=== PATIENT | female | born 1940 | race Caucasian/White ===

== ENCOUNTER 2022-08-01 10:53 | Outpatient (CLI) | payer MEDICARE, BC, SELFPAY | END 2022-08-01 10:54 | disposition home or self-care (01) | LOC: NFLDREF 08-03 11:33 | PROVIDERS: PCP Internal Medicine; Referring Provider Internal Medicine; Visit Provider Internal Medicine | DX: E78.5 Hyperlipidemia, unspecified (principal); I10 Essential (primary) hypertension | CPT/HCPCS: 80048; 80061 ==

== ENCOUNTER 2022-11-07 13:51 | Outpatient (CLI) | payer MEDICARE, BC, SELFPAY | END 2022-11-07 13:52 | disposition home or self-care (01) | LOC: US 13:51 | PROVIDERS: PCP Internal Medicine; Visit Provider Internal Medicine | DX: M79.604 Pain in right leg (principal); M79.605 Pain in left leg; R20.0 Anesthesia of skin | CPT/HCPCS: 93924 ==

== ENCOUNTER 2022-11-29 14:00 | Outpatient (RCR) | payer MEDICARE, BC, SELFPAY ==
--- NOTE | 2022-09-19 17:34 | PT.OPEX ---
PT [place] Outpatient Eval PT [facility] Outpatient Eval Start: 09/19/22 16:59 Freq: Status: Active Protocol: Document 09/19/22 17:02 AMOS (Rec: 09/19/22 17:25 AMOS [id number]) E-signed By Chayo Carmona DPT Physical Therapy Outpatient Evaluation Insurance Information Recert Due Date 12/18/22 Insurance Name Medicare B,Blue Cross/Blue Shield Medical Diagnosis R sciatica M54.31 Treating Diagnosis R sciatica pain M54.31 weakness (core/hip/glut/LE) R53.1 Subjective Subjective Patient reports hx of LBP and sciatica issues. States she had PT years ago and it was helpful in managing her pain/ sx. 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 She c/o R LB/buttock/hip pain and pain /sx that go down to her R lateral ankle. Also reports some issues with L foot tingling, numbness over the last several months and she isn't sure if this is related. She is using aleve on occasion. Also tried some ibuprofen but didn't like how that made her feel. Hasn't tried ice/heat. Denies any prior back, hip, or knee surgeries. No prior back injections. Pain rated 0-7/10 . She is modifying activities as able, more rest breaks to manage the pain/sx. Reports increased pain with standing/ walking. Decreased pain with rest. Date of Last Physician Visit 09/01/22 Current Work Status Retired Assessment Assessment/Impression Patient is an 82 year old female with R sided LB/buttock /hip pain, R LE radicular pain /sx, core/hip/glut/LE weakness , limited tolerance for extended standing/walking, interrupted sleep. Pain range 0-7/10. She reports minimal pain this morning. Amb without an AD, normal gait. Pelvic alignment assessed and equal, LL equal. Patient is tight, tender with palpation R LB/buttock region and R ITB. She denies any pain, tenderness with palpation R ankle region. She is the caregiver for her . Patient with general tightness , stiffness with trunk ROM but overall functional. She has a hx of LBP, sciatica issues. Core/hip/glut/LE weakness. She would benefit from skilled PT for pain/sx management, core/hip/glut/LE strengthening , posture/body mechanics training, and establishment of HEP. Plan of Care Rehabilitation Potential Good Physical Therapy Goals 1. Decrease LBP, R buttock/ hip pain to less than/equal to 3/10 with daily activities and with the progression of PT activities over the next 4-6 weeks. 2. Patient will be educated on posture/body mechanics and pain management strategies over the next 4-6 weeks for decreased stress on LB and decreased LB/buttock/hip pain. 3. Decrease R LE pain/sx by 50% or greater over the next 4 -6 weeks for improved tolerance for extended standing/walking. 4. Improve core/hip/glut/LE strength over the next 10-12 weeks for improved posture, decreased stress on LB/pelvis/hip, decreased LB/ buttock/hip pain, and improved tolerance for extended standing/walking for daily activities. 5. Patient will be I with HEP within 12 weeks for progression toward above goals, ongoing self- management of pain/sx, ongoing self improvements in core/hip/glut/LE strength, posture/body mechanics, and for improved tolerance for extended standing/walking activities and performance of caregiver activities without flare up of pain/sx. Coordination/Communication With Referral Source Treatment Plan/Direct Interventions Manual Therapy,Therapeutic Exercises Frequency/Duration 1x/week Patient Will Be Discharged From Therapy Completion of LTG(s),Skills Plateau,Independent w/HEP, Independently Progressing Evaluation Billing Untimed Code Treatment Minutes 23 Complexity Moderate Certification Information Initial Certification Date 09/19/22 Ending Certification Date 12/18/22 Provider Signature Shows Agreement With POC & Medical Necessity Physician Signature & Date Requested Please Sign/Date Here Physician Comment/Change : Physician NPI Number #
== END 2023-03-29 23:59 | disposition home or self-care (01) ==
PROVIDERS: PCP Internal Medicine; Visit Provider Internal Medicine
DX: M54.31 Sciatica, right side (principal); Z51.89 Encounter for other specified aftercare
CPT/HCPCS: 97110; 97162

== ENCOUNTER 2023-08-22 10:35 | Outpatient (CLI) | payer MEDICARE, BC, SELFPAY | END 2023-08-22 10:36 | disposition home or self-care (01) | LOC: NFLDREF 17:14 | PROVIDERS: PCP Internal Medicine; Referring Provider Internal Medicine; Visit Provider Internal Medicine | DX: I10 Essential (primary) hypertension (principal) | CPT/HCPCS: 80048 ==

== ENCOUNTER 2024-08-28 10:50 | Outpatient (CLI) | payer MEDICARE, BC, SELFPAY | END 2024-08-28 10:51 | disposition home or self-care (01) | LOC: NFLDREF 09-02 03:48 | PROVIDERS: PCP Internal Medicine; Referring Provider Internal Medicine; Visit Provider Internal Medicine | DX: I10 Essential (primary) hypertension (principal) | CPT/HCPCS: 80048 ==

== ENCOUNTER 2024-12-02 13:00 | Outpatient (RCR) | payer MEDICARE, BC, SELFPAY ==
--- NOTE | 2024-10-07 17:22 | PT.OPEX ---
PT [place] [facility] PT [facility] Outpatient Eval Start: 10/07/24 16:56 Freq: Status: Active Protocol: Document 10/07/24 16:56 AMOS (Rec: 10/07/24 17:17 AMOS [id number]) E-signed By Chayo Carmona DPT Physical Therapy Outpatient Evaluation Insurance Information Recert Due Date 01/05/25 Insurance Name Medicare B,Blue Cross/Blue Shield Medical Diagnosis neck pain Treating Diagnosis UBN tightness/stiffness, impaired posture Subjective Subjective Patient c/o neck tightness, stiffness that causes her to turn her head to the right. Feels she is always looking that direction and notices it in pictures that her head is always turned to the right. She isn't sure why but was wondering if she needed a chiropractic adjustment of her atlas - told by some friends that it may be out of place. She denies pain, reports tightness and maybe a discomfort but states it isn't painful. Denies any UE pain/ sx. She is R handed. Patient reports sleeping on her R side. Discussed pillow support and patient feels her head probably isn't getting good support when laying on her right side. States it is easier to look to her R and turning to her L is tight, limited. Patient is hoping to improve her head position, posture, and neck motion. Date of Last Physician Visit 08/29/24 Current Work Status Retired Assessment Assessment/Impression Patient is an 84 year old female with UBN tightness/ stiffness, impaired posture. Patient reports tendency to turn her head to the right and has limited motion, tightness , stiffness with turning her head to the left. She is able to demonstrate cervical ROM in all directions but with limited sidebending R/L and limited rotation L. Cervical SB 10 degrees R/L, rotation R 56 degrees, rotation L 45 degrees. Patient is tight with palpation bilateral UBN region including UT, levator, cervical paraspinals, scalene musculature. Patient with forward head, rounded shoulders posture. Able to initiate some ROM and stretching exercises this session. Tolerated well. Patient education and discussion related to sleep position, pillow support, posture/body mechanics with daily activities, sitting posture. Patient will look into her pillow support as she reports sleeping on her R side. Also discussed use of topical/ointment for decreased UBN muscle tension/tightness. Patient will try rubbing some ointments on her neck at home this week. Reviewed use of ice/heat as well. Patient would benefit from skilled PT for pain/sx management, improved cervical ROM, posture /body mechanics training, UBN/ trunk strengthening for improved posture, and establishment of HEP. Plan of Care Rehabilitation Potential Good Physical Therapy Goals 1. Decrease UBN tightness/ stiffness over the next 4-6 weeks for improved tolerance for daily activities involving cervical rotation R/L ( driving, foot cutter, visiting with friends) without restriction or limitation. 2. Patient will be educated on posture/body mechanics over the next 4-6 weeks for decreased stress on UBN musculature and decreased UBN tightness/stiffness/ limited motion. 3. Improve cervical ROM to WFL and pain free within 6-8 weeks for return to ease with daily/household activities and with driving without limitation from tightness/stiffness. 4. Improve core, trunk, UBN strength and posture within 8- 10 weeks for return to PLF with daily/ housework activities without limitation due to UBN tightness/stiffness or limited neck motion. 5. Patient will be I with HEP within 10 weeks for progression toward above goals, ongoing self management of pain/sx, ongoing self improvements in cervical ROM/posture/ strength, and for return to PLF with daily/housework activities without limitation due to UBN tightness/stiffness or limited neck motion. Coordination/Communication With Referral Source Treatment Plan/Direct Interventions Manual Therapy,Therapeutic Exercises Frequency/Duration 1x/week Patient Will Be Discharged From Therapy Completion of LTG(s),Skills Plateau,Independent w/HEP, Independently Progressing Evaluation Billing Untimed Code Treatment Minutes 25 Complexity Low Certification Information Initial Certification Date 10/07/24 Ending Certification Date 01/05/25 Provider Signature Required Yes Provider Signature Shows Agreement With POC & Medical Necessity Physician NPI Number Write NPI# Here Physician Comment/Change : Physician Signature & Date Requested Please Sign/Date Here
== END 2025-04-01 23:59 | disposition home or self-care (01) ==
PROVIDERS: PCP Internal Medicine; Visit Provider Internal Medicine
DX: M54.2 Cervicalgia (principal); G89.29 Other chronic pain; Z51.89 Encounter for other specified aftercare
CPT/HCPCS: 97110; 97140; 97161

== ENCOUNTER 2025-03-31 11:17 | Emergency (ER) | payer MEDICARE, BC, SELFPAY ==
--- OUTSIDE RECORDS SUMMARY | 2015-12-08 05:00 | XMS_ITS | Continuity of Care Document ---
Author Organization [facility] Address [address] [address] [place] [address] Phone Care Team Providers Care Knotter Hand Name Role Phone Didi Barnes MD Unavailable Unavailable Allergies, Adverse Reactions, Alerts Substance Reaction Status Criticality trimethoprim edema, erythema Active No Informati on POLYMYXIN B SULFATE edema, erythema Active No In formation AMOXICILLIN TRIHYDRATE Rash Active No In formation Medications Medication Instructions Dosage Effective Dates (start - stop) Status Comments hydrochlorothiazide 25 mg tablet take 1 tablet by oral route every day 25 MG - Active VITAMIN B-12 (unknown strength) take 1 by Oral route every day Not Available - Active Herbal medications/supplements unknown Take one tablet by mouth daily various suplements - Active Coral Calcium 200 mg-100 mg-100 unit Cap - Active OMEGA 3 (unknown strength) Take two tabl ets by mouth twice per day Not Available - Active GRAPE SEED (unknown strength) one tab orally each day Not Available - Active Multivitamin unknown Take one tablet by mouth two times per day - Active MiralaxBisacodylMagCit Colon Prep Use as directed - No Longer Active VITAMIN D3 (unknown strength) take 1 Tablet by Oral route every day Not Available - No Longer Active Tylenol unknown as needed - No Longer Active Lo-Dose Aspirin 81 mg Tab, Delayed Release take one tablet po qday. - No Longer Active Procedures Procedure Date Colorectal Ca Screen Hi Risk I 16 Colorectal Ca Screen Hi Risk I 11 0529F Offic/outpt E&m Estab Mod-hi 2 10 [id number] Colonoscopy Flex; W/remov Les- 08 Level Iv-surg Path Gross/micro 08 Advance Directives Directive Yes / No Effective Date File Name No Information Encounters Encounter Description Practice Location Reason(s) For Visit Diagnoses Date Provider Providers Copied on Encounter [facility] [place], [address] [address], [facility], [id number], [place] tel:[phone] [facility]oscopy [place] Diverticulosis large intestine w/o perforation or abscess w/o bleedingEncounte r for screening for malignant neoplasm of colonPersonal history of colonic polypsDvrtclos of lg int w/o perforation or abscess w/o bleeding 6 Cameron Tolbert. [address], [id number], [place]. tel:[phone] Referring Provider: Deja Xie, [address], [place], [address]. tel:[phone] [facility] [place], [address] [address], [facility], [address], [place] tel:[phone] [facility] No Information 6 Bryson Benoit. [address] [facility] 500, [place], [place], [address], [place]. tel:[phone] Referring Provider: Deja Xie, [address] [place], [address]. tel:[phone] [facility] [place], [address] [address], [place], [address], [place] tel:[phone] [facility] 3 yr follow up screenig (chief complaint) Hx of polyps (chief complaint) Family history of colon cancer, Maternal uncle, cousin (chief complaint) Personal History Colon PolypsColon Cancer ScreeningPersona l History Colon Polyps 1 No Information Referring Provider: Deja Xie, [address], [place], [address]. tel:[phone] Offic/outpt E&m Estab Mod-hi 2 [facility], [address] [address], [place], [id number], [place] tel:[phone] [facility] Abdominal pain (chief complaint) LUQ PainIrritable Bowel Syndrome 0 No Information Referring Provider: Deja Xie, [address] [place], [address]. tel:[phone] [facility], [address] [address], [place], [id number], [place] tel:[phone] [facility] Colon Cancer ScreeningBenign Neoplasm Lg Bowel 8 No Information Referring Provider: Deja Xie, [address] [place], [address]. tel:[phone] Family History Family Member Type Diagnosis Age At Onset Brother Problem (finding) Crohn's disease Son Problem (finding) Alive and well Mother Problem (finding) Ulcers First degree family history Problem (finding) No history of Cancer, colon Maternal uncle Problem (finding) cancer of colon Father Problem (finding) gallbladder disease Daughter Problem (finding) Thyroid disorder Sister Problem (finding) Alive and well Daughter Problem (finding) Alive and well First degree family history Problem (finding) Crohn's First degree family history Problem (finding) No Family history of No history of Colon Polyps Brother Problem (finding) prostate cancer First degree family history Problem (finding) No history of Ulcerative Colitis Mother Problem (finding) Colon polyps Payers Payer name Insurance type Covered libertarian ID Authorblakea tion(s) Medicare NGS MB [id number] Social History Type Description Quantity Date Captured Comments Alcohol Use Details Unknown Caffeine Use Details Unknown Tobacco Use Status No Information Smoking Status Never smoker Sex Female Vital Signs Date / Time: Height Weight BMI Pulse Rate Blood Pressure Temperature Respiratory Rate Body Surface Area Head Circumference Head Circ. Percentile Wt./Erik. Percentile BMI percentile Pulse Ox Inhaled Ox 10:40 AM 65.00 in 68.930 kg (152.00 lbs) 25.3 0 kg/m eter (2) 66 /min 112/64 mm[Hg] 0.00 F 16 /min 98 % Chief Complaint And Reason For Visit No Information Reason For Referral Reason For Referral No Information History Of Present Illness Encounter Date Complaint History Of Prese nt Illness No Information Functional Status Date Functional Assessmen t No Information Instructions Date Instruction Additional Infor zaheer Colon Cancer Prevention Related to Diverticulosis large intestine w/o perforation or abscess w/o bleeding Diverticulosis/Diverticulitis Re lated to Diverticulosis large intestine w/o perforation or abscess w/o bleeding High Fiber Diet Related to Diver ticulosis large intestine w/o perforation or abscess w/o bleeding Assessments Type Assessment Date assessment Diverticulosis large intestine w/o perforation or abscess w/o bleeding Patient Care Teams Name Effective Dates (start - stop) Status Members No Information
--- OUTSIDE RECORDS SUMMARY | 2025-03-31 11:19 | XMS_ITS | Clinical Summary ---
Author Organization [facility] Address [address] [place] [address]. [place] [address] Care Team Providers Care Chuck Tender Name Role Phone Deja Leung MD Primary Care Provider [phone] Allergies Active Allergy Reactions Criticality Noted Date Comments Amoxicillin-Pot Clavulanate Rash Low 12/27/19 18 Polymyxin B-Trimethoprim 12/26/2017 Edema, erythema Medications Aspirin (ECOTRIN PO) Take 81 mg by mouth daily Active HYDROCHLOROTHIAZ KARL PO Take 25 mg by mouth daily Active Cyanocobalamin (B-12) 1000 MCG CAPS Active NONFORMULARY PROVEX CV Active NONFORMULARY CALCIUM NEW CHAPTER BRAND 3 TABLETS Active multivitamin, therapeutic with minerals (MULTI-VITAMIN) TABS tablet Take 1 tablet by mouth daily Active [place]-3 Fatty Acids (FISH OIL PO) PLUS VITAMIN E 1000 MG Active Misc Natural Products (TURMERIC CURCUMIN) CAPS Take by mouth daily Active Social History Tobacco Use Types Packs/Day Years Used Date Smoking Tobacco: Never Smokeless Tobacco: Never Alcohol Use Standard Drinks/Week Comments Yes 0 (1 standard drink = 0.6 oz pur e alcohol) Comments No Sex and Gender Information Value Date Recorded Sex Assigned at Not on file 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 Gender Identity Not on file Sexual Orientation Not on file Last Filed Vital Signs Vital Sign Reading Time Taken Comments Blood Pressure 122/64 01/18/2018 12:06 PM CDT Pulse - - Temperature 36.2 C (97.2 F) 12/28/2017 7:11 AM CDT Respiratory Rate 16 01/18/2018 12:06 PM CDT Oxygen Saturation 96% 01/18/2018 12:06 PM CDT Inhaled Oxygen Concentration - - Weight 71.4 kg (157 lb 6.5 oz) 01/16/2018 10:00 AM CDT Height 165.5 cm (5' 5.16) 01/16/2018 10:00 AM C DT Body Mass Index 26.07 01/16/2018 10:00 AM CDT Plan of Treatment Not on file Medical Devices Implanted Type Area Pile Trimmer Device Identifier Shelf Expiration Date Model / Serial / Lot Eye Imp Iol Riccardo Pcl [id number] Acrysof Iq 19.0 Implanted:Qty: 1 on 01/18/2018 by Nadeem Arcos MD at [facility] Lens/Eye Implant Left: Eye [employer] 06/21/2022 [id number] / [id number] / Eye Imp Iol Riccardo Pcl Sa60wf Acrysof Iq 18.0 Implanted:Qty: 1 on 12/28/2017 by Nadeem Arcos MD at [facility] Right: Eye 09/18/2022 SA60WF 18.0 / [id number] / [place] [id number] [facility] MEDICARE SUPPLEMENT Care Teams Chuck Tender Relationship Specialty Start Date End Date Deja Leung MD PCP - General Internal Medicine 12/18/17
--- OUTSIDE RECORDS SUMMARY | 2025-03-31 11:19 | XMS_ITS | Clinical Summary ---
Author Organization [facility] Address [address] [place] [address] Care Team Providers Care Sr. Director Product Management Name Role Phone Halina Chappell MD Unavailable [phone] Joce [facility] Phys Of Primary Care Provider Un available Allergies Active Allergy Reactions Criticality Noted Date Comments Amoxicillin-Pot Clavulanate Rash 06/15/19 08 Polymyxin B Sulf-Trimethoprim Edema,Erythema Medium Medications MULTIVITAMIN TAB 0 03/31/20 05 Active omega-3 fatty acids-vitamin E (FISH OIL) 1,000 mg cap Per pt 0 Active medication order composer Calcium- New Chapter Brand- 3 tablets ( 780 mg Calcium(Algae), 1,000mg. Vit D, 35mcg Vit. K1, 45 mcg Vit K2, 58 mg. Magesium (Algae), trace minerals 0 04/01/20 14 Active medication order composer Vitamin B12 1000 mcg of methlcobalamin 0 04/02/20 14 Active medication order composer Grapeseed Extract- ProvexCV- 330 mg grapeseed extract, 60 mg reservatrol, 100 mg green tea, quercetin, bilberry, gingko biloba 0 04/02/20 14 Active medication order composer Nutraview-Blend of vit c, antioxidents-blue murphy, bilberry; luetein and zeaxanthin 0 04/02/20 14 Active aspirin (ECOTRIN) 81 mg enteric coated tablet Take 1 tablet by mouth once daily with a meal. 0 06/01/19 16 Active turmeric root extract 500 mg cap OTC, Take 1300 mg by mouth daily. Active atorvastatin (LIPITOR) 20 mg tabletIndications: At risk for cardiovascular event,Hyperlipidem ia, unspecified hyperlipidemia type TAKE ONE TABLET BY MOUTH AT BEDTIME 90 tablet 2 11/12/19 19 Active hydroCHLOROthiazid e (HCTZ) 25 mg tabletIndications: Hypertension, unspecified type TAKE 1 TABLET BY MOUTH EVERY DAY 30 tablet 06/07/19 21 Active lisinopril-hydroch lorothiazide 20-12.5 mg tablet (PRINZIDE) Take 1 Tablet by mouth. 08/04/19 21 Active Active Problems Problem Noted Date Diagnosed Date ACP (advance care planning) 03/20/2018 Overview (03/20/2018): HCD received, see HCD 03/15/18 JACKLYN Marquez Advance Care Planning Educator [phone] Hypertension 05/08/2012 Hyperlipidemia 01/10/2012 Personal history of DVT after travel 05/05/2011 Overview (02/14/2013): after travel Family history of colon cancer Overview (02/14/2013): Uncle, s/p colonoscopy 2010 repeat due 2015 Osteopenia Overview (04/11/2013): dexa 2012. 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/09/2008 05/02/2011 Immunizations Immunization Administration Dates Next Due Influenza A (H1N1), Inactiva rich (Age >=3 Years) 06/01/2009 Influenza, IIV3 (Age >=3 years) 05/02/20 11,03/15/2010,06/01/2009,2007,03/08/2007,04/18/2005,03/20/2003 Pneumococcal Poly,23-Valent (Pneumovax) 11/07/2007 Pneumococcal conj 13-Valent (Prevnar 13) 07/17/2017 Td (Age >=7 Years) 05/09/2005 Tdap 01/09/2012 Typhoid (injectable) 05/09/2005 Family History Medical History Relation Name Comments Cancer-prostate Brother 4 yr younger Dx @ 62 Psychiatric illness Child daughter with depression Diabetes Father late onset Hypertension Father Other Father pericarditis/?e ndocarditis due to small pox injection and subsequ infxn Cancer-colon Maternal Uncle Dx @ 62 Heart Disease Mother irregular hear tbeat Osteoporosis Mother Other Mother B12 deficiency Cancer-prostate Paternal Uncle Dx in 70's Heart Disease Paternal Uncle [place] age 50's Stroke Paternal Uncle Hypertension Sister Cancer No Family History Cancer-breast No Family History Cancer-ovarian No Family History Relation Name Status Comments Brother 4 yr younger Child Father Maternal Uncle Mother Paternal Uncle Sister Social History Tobacco Use Types Packs/Day Years Used Date Smoking Tobacco: Never Smokeless Tobacco: Never Tobacco Cessation:Counseling Given: No Alcohol Use Standard Drinks/Week Comments Yes 7 (1 standard drink = 0.6 oz pur e alcohol) PHQ-2 Answer Date Recorded PHQ-2 Score 0 07/23/2018 Social Connections Answer Date Recorded Frequency of Communication with Friends and Fami ly Not on file 05/22/2021 Financial Resource Strain Answer Date R ecorded Difficulty of Paying Living Expenses Not on file 05/22/2021 Difficulty of Paying Living Expenses Not on file 05/22/2021 Comments No Sex and Gender Information Value Date Recorded Sex Assigned at Not on file 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 Female 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 Gender Identity Not on file Sexual Orientation Not on file 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 Not on file Not on file Not on file Obstetrics History Last Filed Vital Signs Vital Sign Reading Time Taken Comments Blood Pressure 124/71 10/28/2020 11:16 AM CDT Pulse 66 10/28/2020 11:16 AM CDT Temperature 36.4 C (97.5 F) 10/28/2020 11:16 AM CDT Respiratory Rate 18 10/31/2018 1:32 PM CDT Oxygen Saturation 98% 10/28/2020 11:16 AM CDT Inhaled Oxygen Concentration - - Weight 69.9 kg (154 lb) 10/28/2020 11:16 AM CDT Height 165.5 cm (5' 5.16) 08/08/2018 10:44 AM C DT Body Mass Index 25.5 08/08/2018 10:44 AM CDT Plan of Treatment Health Maintenance Due Date Last Done Comments Zoster (shingles) series for age 50+ (1 of 2) 1988 RSV vaccine for adults or (1 - 1-dose 75+ series) 2013 BMI (ht and wt on same day) for age 18+ 08/09/2019 08/08/2018, 12/20/2017, 10/27/2017, Additional history exists Depression screening for age 12+ 08/09/2019 08/08/2018, 08/29/2017, 07/17/2017, Additional history exists Medicare Wellness for age 65+ 08/09/2019 08/08/2018, 07/17/2017, 06/29/2016, Additional history exists Tetanus booster 01/08/2022 01/09/2012, 05/09/2005 Influenza Vaccine (#1) 2025 1, 03/15/2010, 06/01/2009, Additional history exists DEXA/DXA scan for age 65+ Completed 2012, 03/17/2010, 11/13/2007 Pneumococcal series for age 50+ Completed 07/17/2017, 11/07/2007 Hepatitis B series for 19+ Aged Out N o longer eligible based on patient's age to complete this topic Procedures Procedure Name Priority Date/Time Associated Diagnosis Comments XR DXA BONE DENSITY 2 SITES AXIAL Routine 04/10/2013 1:53 PM DELIVERY RN Female climacteric state from Last 3 Months or Most Recently Relevant to Health Maintenance Results * XR DEXA BONE DENSITY 2 SITES [82881.1] (04/10/2013 1:53 PM DELIVERY RN) Anatomical Region Laterality Modality Spine, HIPS, HIPL, HIPR Bone Den sitometry Impressions 04/11/2013 1:20 PM DELIVERY RN This patient's T-score meets the World Health Organization (WHO) criteria for low bone density at one or more measured sites (T-score between less than -1.0 and greater than -2.5). The risk of osteoporotic fracture increases approximately two-fold for each 1.0 SD decrease in T-score. COMPARISON: Comparison with previous study dated 03/17/2010 shows: There was no statistically significant change in the bone mineral density in the spine. There was no statistically significant change in the bone mineral density in the right hip. There was no statistically significant change in the bone mineral density in the left hip. Comparison with baseline study dated 11/13/2007 shows: There was a statistically significant increase in the bone mineral density in the spine. There was no statistically significant change in the bone mineral density in the right hip. There was no statistically significant change in the bone mineral density in the left hip. Statistical significance is determined by the least significant change (LSC) for the scanner and operators at this facility. FRAX (WHO Fracture Risk Assessment Tool) 10-year Probability of Fracture: Major Osteoporotic: 21.6% Hip: 11.5% Population: [place] () Based on Dual Femur Left Neck BMD More information and the calculation tool can be found at this website: http://www.shef.ac.uk/FRAX/ The scan details are available in the patient s chart in [facility]. Freda Castillo M.D. Breast Radiologist [email or web address] MARCE/[email or web address] Narrative 04/11/2013 1:20 PM DELIVERY RN DIAGNOSTIC DXA BONE MINERAL DENSITY, 04/10/2013 CLINICAL HISTORY: This is a 72-year-old female patient. The patient has a history of low bone density based on a prior BMD study. RISK FACTORS FOR LOW BONE MINERAL DENSITY/FRAGILITY FRACTURES: The patient has estrogen deficiency. The patient has a family history of fragility fracture or osteoporosis in a first degree relative. The patient has taken for at least one month the following medications in the last year: diuretics. TECHNIQUE: The patient was scanned on a [employer]. The study was technically adequate. The following sites were used for analysis: PA lumbar spine: L1 to L4, Right hip: Femoral neck, Left hip: Femoral neck. FINDINGS: BMD T-Score Z-Score Lumbar Spine (L1 to L4) 1.067 g/cm2 -0.9 0.6 Right Hip (Femoral neck) 0.796 g/cm2 -1.7 0.0 Right Total Hip (BMD for comparison to prior) 0.828 g/cm2 Left Hip (Femoral neck) 0.778 g/cm2 -1.9 -0.1 Left Total Hip (BMD for comparison to prior) 0.824 g/cm2 Procedure Note Freda Castillo - 04/11/2013 DIAGNOSTIC DXA BONE MINERAL DENSITY, 04/10/2013 CLINICAL HISTORY: This is a 72-year-old female patient. The patient hasa history of low bone density based on a prior BMD study. RISK FACTORS FOR LOW BONE MINERAL DENSITY/FRAGILITY FRACTURES: Thepatient has estrogen deficiency. The patient has a family history offragility fracture or osteoporosis in a first degree relative. Thepatient has taken for at least one month the following medications in thelast year: diuretics. TECHNIQUE: The patient was scanned on a [employer]. The study wastechnically adequate. The following sites were used for analysis: PAlumbar spine: L1 to L4, Right hip: Femoral neck, Left hip: Femoralneck. FINDINGS: BMD T-Score Z-Score Lumbar Spine (L1 to L4) 1.067 g/cm2 -0.9 0.6 Right Hip (Femoral neck) 0.796 g/cm2 -1.7 0.0 Right Total Hip (BMD for comparison to prior) 0.828 g/cm2 Left Hip (Femoral neck) 0.778 g/cm2 -1.9 -0.1 Left Total Hip (BMD for comparison to prior) 0.824 g/cm2 IMPRESSION: This patient's T-score meets the World Health Organization(WHO) criteria for low bone density at one or more measured sites (T-scorebetween less than - 1.0 and greater than -2.5). The risk of osteoporoticfracture increases approximately two-fold for each 1.0 SD decrease inT-score. COMPARISON: Comparison with previous study dated 03/17/2010 shows: There was no statistically significant change in the bone mineral densityin the spine. There was no statistically significant change in the bone mineral densityin the right hip. There was no statistically significant change in the bone mineral densityin the left hip. Comparison with baseline study dated 11/13/2007 shows: There was a statistically significant increase in the bone mineral densityin the spine. There was no statistically significant change in the bone mineral densityin the right hip. There was no statistically significant change in the bone mineral densityin the left hip. Statistical significance is determined by the least significant change(LSC) for the scanner and operators at this facility. FRAX (WHO Fracture Risk Assessment Tool) 10-year Probability of Fracture: Major Osteoporotic: 21.6% Hip: 11.5% Population: [place] () Based on Dual Femur Left Neck BMD More information and the calculation tool can be found at this website:http://www.shef.ac.uk/FRAX/ The scan details are available in the patient s chart in [facility]. Freda Castillo M.D. Breast Radiologist 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 Director Product Management Relationship Specialty Start Date End Date James Hobson Phys Of PCP - General 09/28/20 Halina Chappell MD Dermatology 06/01/15
[2025-03-31 11:36] VITALS: BP 168/67; PULSE 100; RESP 16; TEMP 36.8; O2SAT 98; BMI 24.3
--- NOTE | 2025-03-31 12:18 | ED.GENADULT ---
HPI - General Adult General Chief complaint: Extremity Pain/Injury, Lower Stated complaint: leg pain / rule out DVT Time Seen by Provider: 03/31/25 11:46 History of Present Illness HPI narrative: Arrives with complaints of pain in right knee and lower leg for the past month. Denies injury, alert and oriented, ABCs intact. 84-year-old woman presenting to the emergency department with concern of right knee pain. Feels a tense of fullness and stiffness in particular when she goes to flex her knee. Seems to have some pain radiating more distally below the knee now as well. This been going on for few weeks. Has escalated. Having trouble sleeping generally for the discomfort. No particular trauma. Does not recall a diagnosis specifically of osteoarthritis. No chest pain or shortness of breath. Was recommended by primary to present to the emergency department. Has a history of DVT in the left leg. Seems to recall when I mentioned is that maybe she had a cyst there before as well in the left knee. Related Data Home Medications ?Medication ?Instructions ?Recorded ?Confirmed Nutraview PO 03/22/22 10/07/24 acetaminophen 500 mg tablet 500 mg PO Q6H PRN 03/22/22 03/31/25 omega-3 fatty acids 500 mg capsule 500 mg PO QDAY 03/22/22 03/31/25 tumeric black pepper 500 mg PO DAILY 08/25/22 03/31/25 calcipotriene 0.005 % topical cream 1 applic topical QDAY PRN 08/24/23 03/31/25 ibuprofen 200 mg tablet (Advil) 200 mg PO Q6H PRN 08/24/23 03/31/25 multivitamin 1 tab PO QDAY PRN 08/24/23 03/31/25 Provex PO DAILY 08/29/24 10/07/24 melatonin 5 mg capsule 3 - 5 mg PO .hs 08/29/24 03/31/25 vitamin B complex 1 cap PO QDAY 08/29/24 03/31/25 magnesium glycinate 100 mg (as 375 mg PO QDAY PRN 10/07/24 03/31/25 glycinate) tablet sennosides 8.6 mg tablet (senna) 8.6 mg PO QDAY 10/07/24 03/31/25 Previous Rx's ?Medication ?Instructions ?Recorded lisinopril 20 0.5 tab PO QHS #45 tabs 08/29/24 mg-hydrochlorothiazide 12.5 mg tablet Allergies Allergy/AdvReac Type Severity Reaction Status Date / Time amoxicillin Allergy Unknown Rash Verified 03/31/25 11:35 Review of Systems Status of ROS: Reports: 6 or more systems reviewed and unremarkable except as noted in History and below [facility] Medical History History of deep venous thrombosis (2011) ?Z86.718 - Personal history of other venous thrombosis and embolism (ICD-10) Surgical History History of tonsillectomy (1945) ?Z90.89 - Acquired absence of other organs (ICD-10) History of bilateral cataract extraction (2017) ?Z98.41 - Cataract extraction status, right eye (ICD-10) ?Z98.42 - Cataract extraction status, left eye (ICD-10) Social History What is your current living situation?: I presently have a place to live Problems where you live: no known problems In the past 12 months, utilities in danger of being shut off: no In past 12 months, lack of transportation kept you from medical appts, meetings, work, or getting things needed for daily living: no In the past 12 mos, have been you worried that your food would run out before you had money to buy more?: never true In the past 12 mos, the food you bought just didn't last and you didn't have money to buy more?: never true Smoking Status: Never smoker How often does anyone, including family, friends and others, physically hurt you: never How often does anyone, including family, friends and others, insult or talk down to you: never How often does anyone, including family, friends and others, threaten you with harm: never How often does anyone, including family, friends and others, scream or curse at you: never Exam Narrative: Exam Narrative: Fullness behind the left knee. Do not appreciate an effusion on the knee joint itself. No erythema. No distal swelling or pain. Const: Vital Signs, click to edit/add: Vital Signs - 24 hr 03/31/25 11:36 Temperature 98.2 F Pulse Rate [Pulse Oximeter] 100 Respiratory Rate 16 Blood Pressure [Ri ght Upper Arm] 168/67 H Pulse Oximetry 98 Oxygen Delivery Me thod Room Air Documenting provider has reviewed patient's vital signs: yes Course Vital Signs Vital signs: Initial Vital Signs Temperature 98.2 F 03/31/25 11:36 Temperature Source Temporal Artery Scan 03/31/25 11:36 Pulse Rate 100 03/31/25 11:36 Respiratory Rate 16 03/31/25 11:36 Blood Pressure 168/67 H 03/31/25 11:36 Blood Pressure Mean 100 03/31/25 11:36 Pulse Oximetry 98 03/31/25 11:36 Oxygen Delivery Method Room Air 03/31/25 11:36 Vital Signs Temperature 98.2 F 03/31/25 11:36 Pulse Rate 100 03/31/25 11:36 Respiratory Rate 16 03/31/25 11:36 Blood Pressure 168/67 H 03/31/25 11:36 Pulse Oximetry 98 03/31/25 11:36 Oxygen Delivery Method Room Air 03/31/25 11:36 Temperature 98.2 F 03/31/25 11:36 Pulse Rate 100 03/31/25 11:36 Respiratory Rate 16 03/31/25 11:36 Blood Pressure 168/67 H 03/31/25 11:36 Pulse Oximetry 98 03/31/25 11:36 Oxygen Delivery Method Room Air 03/31/25 11:36 Medical Decision Making MDM Narrative Medical decision making narrative: I think probably a Murphy cyst. Will check for this 1st and expand to DVT evaluation if necessary. Imaging confirms Murphy's cyst as discussed with bread and pastry baker. Does not appear to be leaking. I think this is most likely the source of discomfort. Radiology over-read below Indication: Knee pain, fullness. Technique: Targeted sonographic evaluation of the posterior right knee. Comparison: None. Findings/Impression: 3.5 x 0.9 x 1.8 cm probable popliteal cyst visualized in the area of the patient`s concern. No other abnormality identified. Dictated by Demetrius Beltre MD @ 03/31/2025 1:02:19 PM See patient discharge plan for further discussion Unless other restrictions exist, can take up to 600 mg of ibuprofen or up to 1000 mg of acetaminophen per dose. Consider ice packs for temporary symptom relief. Hold on ice/cold pack with Ronnie wrap supplied here. Consider an appointment with orthopedics or perhaps primary care if they do this sort of procedure, and that would be potential drainage of this cyst since it seems to be causing you a reasonable amount of discomfort. 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 Consider ice packs for temporary symptom relief. Hold on ice/cold pack with Ronnie wrap supplied here. Consider an appointment with orthopedics or perhaps primary care if they do this sort of procedure, and that would be potential drainage of this cyst since it seems to be causing you a reasonable amount of discomfort. Prescriptions: No Action ibuprofen [Advil] 200 mg tablet 200 mg PO Q6H PRN calcipotriene 0.005 % cream 1 applic topical QDAY PRN Rx Instructions: rub in gently and completely vitamin B complex Capsule 1 cap PO QDAY melatonin 5 mg capsule 3 - 5 mg PO .hs lisinopril-hydrochlorothiazide 20-12.5 mg tablet 0.5 tab PO QHS Qty: 45 3RF magnesium glycinate 100 mg tablet 375 mg PO QDAY PRN acetaminophen 500 mg tablet 500 mg PO Q6H PRN Rx Instructions: NO MORE THAN 4000 MG/DAY omega-3 fatty acids 500 mg capsule 500 mg PO QDAY Nutraview PO multivitamin Tablet 1 tab PO QDAY PRN Provex PO DAILY tumeric black pepper 500 mg PO DAILY sennosides [senna] 8.6 mg tablet 8.6 mg PO QDAY Follow Up/Referrals: Wendy Celaya MD [Primary Care Provider, Internal Medicine] Stand Alone Forms: [employer] Info Instructions
--- NOTE | 2025-03-31 12:30 | CRLHL7_ITS ---
For Patients: As a result of the Century Cures Act, medical imaging exams and procedure reports are released immediately into your electronic medical record. You may view this report before your referring provider. If you have questions, please contact your health care provider. Indication: Knee pain, fullness. Technique: Targeted sonographic evaluation of the posterior right knee. Comparison: None. Findings/Impression: 3.5 x 0.9 x 1.8 cm probable popliteal cyst visualized in the area of the patient`s concern. No other abnormality identified. Dictated by Demetrius Beltre MD @ 03/31/2025 1:02:19 PM (Electronically Signed)
== END 2025-03-31 13:25 | disposition home or self-care (01) ==
PROVIDERS: Emergency Provider Family Medicine; PCP Internal Medicine
DX: M71.21 Synovial cyst of popliteal space [Baker], right knee (principal); Z86.718 Personal history of other venous thrombosis and embolism
CPT/HCPCS: 76882; 99284

== ENCOUNTER 2025-04-05 13:06 | Emergency (ER) | payer MEDICARE, BC, SELFPAY ==
--- OUTSIDE RECORDS SUMMARY | 2015-12-08 05:00 | XMS_ITS | Continuity of Care Document ---
Author Organization [facility] Address [address] [address] [place] [address] Phone Care Team Providers Care Senior Litigation Paralegal Name Role Phone Didi Barnes MD Unavailable [...] Diagnoses Date Provider Providers Copied on Encounter [facility] [place], [address] [address], [facility] [place], [id number], [place] tel:[phone] [facility] Endoscopy [place] Diverticulosis large intestine w/o perforation or abscess w/o bleedingEncounte r for screening for malignant neoplasm of colonPersonal history of colonic polypsDvrtclos of lg int w/o perforation or abscess w/o bleeding 6 Cameron Tolbert. [address], [id number], [place]. tel:[phone] Referring Provider: Deja Xie, [address], [place], [address]. tel:[phone] [facility] [place], [address] [address], [facility], [address], [place] tel:[phone] [facility] No Information 6 Bryson Benoit. [address] [facility] 500, [place], [place], [address], [place]. tel:[phone] Referring Provider: Deja Xie, [address] [place], [address]. tel:[phone] [facility] [place], [address] [address], [place], [address], [place] tel:[phone] [facility] 3 yr follow up screenig (chief complaint) Hx of polyps (chief complaint) Family history of colon cancer, Maternal uncle, cousin (chief complaint) Personal History Colon PolypsColon Cancer ScreeningPersona l History Colon Polyps 1 No Information Referring Provider: Deja Xie, [address], [place], [address]. tel:[phone] Offic/outpt E&m Estab Mod-hi 2 [facility], [address] [address], [place], [id number], [place] tel:[phone] [facility] Abdominal pain (chief complaint) LUQ PainIrritable Bowel Syndrome 0 No Information Referring Provider: Deja Xie, [address] [place], [address]. tel:[phone] [facility], [address] [address], [place], [id number], [place] tel:[phone] [facility] Colon Cancer ScreeningBenign Neoplasm Lg Bowel 8 No Information Referring Provider: Deja Xie, [address] [place], [address]. tel:[phone] Family History Family Member Type Diagnosis Age [...] libertarian ID Authorblakea tion(s) Medicare NGS MB [id number] Social History Type Description Quantity Date Captured [...]
--- OUTSIDE RECORDS SUMMARY | 2015-12-08 05:00 | XMS_ITS | Continuity of Care Document ---
Author Organization [facility] Address [address] [address] [place] [address] Phone Care Team Providers Care Literary Agent Name Role Phone Didi Barnes MD Unavailable [...] Diagnoses Date Provider Providers Copied on Encounter [facility] [place], [address] [address], [facility], [place], [address], [place] tel:[phone] [facility] Endoscopy [place] Diverticulosis large intestine w/o perforation or abscess w/o bleedingEncounte r for screening for malignant neoplasm of colonPersonal history of colonic polypsDvrtclos of lg int w/o perforation or abscess w/o bleeding 6 Cameron Tolbert. [address], [id number], [place]. tel:[phone] Referring Provider: Deja Xie, [address], [place], [address]. tel:[phone] [facility] [place], [address] [address], [facility], [place], [address], [place] tel:[phone] [facility] No Information 6 Bryson Benoit. [address] [facility] 500, [place], [place], [address], [place]. tel:[phone] Referring Provider: Deja Xie, [address] [place], [address]. tel:[phone] [facility] [place], [address] [address], [place], [address], [place] tel:[phone] [facility] 3 yr follow up screenig (chief complaint) Hx of polyps (chief complaint) Family history of colon cancer, Maternal uncle, cousin (chief complaint) Personal History Colon PolypsColon Cancer ScreeningPersona l History Colon Polyps 1 No Information Referring Provider: Deja Xie, [address], [place], [address]. tel:[phone] Offic/outpt E&m Estab Mod-hi 2 [facility], [address] [address], [place], [id number], [place] tel:[phone] [facility] Abdominal pain (chief complaint) LUQ PainIrritable Bowel Syndrome 0 No Information Referring Provider: Deja Xie, [address] [place], [address]. tel:[phone] [facility], [address] [address], [place], [address], [place] tel:[phone] [facility] Colon Cancer ScreeningBenign Neoplasm Lg Bowel 8 No Information Referring Provider: Deja Xie, [address] [place], [address]. tel:[phone] Family History Family Member Type Diagnosis Age [...] polyps Payers Payer name Insurance type Covered alliance party ID Authorblakea tion(s) Medicare NGS MB [id number] Social History Type Description Quantity Date Captured [...]
--- OUTSIDE RECORDS SUMMARY | 2015-12-08 05:00 | XMS_ITS | Continuity of Care Document ---
Author Organization [facility] Address [address] [address] [place] [address] Phone Care Team Providers Care Imaging Technician Name Role Phone Didi Barnes MD Unavailable [...] Diagnoses Date Provider Providers Copied on Encounter [facility] [place], [address] [address], [facility], [id number], [place] tel:[phone] [facility] Endoscopy [place] Diverticulosis large intestine w/o perforation or abscess w/o bleedingEncounte r for screening for malignant neoplasm of colonPersonal history of colonic polypsDvrtclos of lg int w/o perforation or abscess w/o bleeding 6 Cameron Tolbert. [address], [id number], [place]. tel:[phone] Referring Provider: Deja Xie, [address], [place], [address]. tel:[phone] [facility] [place], [address] [address], [facility], [place], [address], [place] tel:[phone] [facility] No Information 6 Bryson Benoit. [address] [facility] 500, [place], [place], [address], [place]. tel:[phone] Referring Provider: Deja Xie, [address] [place], [address]. tel:[phone] [facility] [place], [address] [address], [place], [address], [place] tel:[phone] [facility] 3 yr follow up screenig (chief complaint) Hx of polyps (chief complaint) Family history of colon cancer, Maternal uncle, cousin (chief complaint) Personal History Colon PolypsColon Cancer ScreeningPersona l History Colon Polyps 1 No Information Referring Provider: Deja Xie, [address], [place], [address]. tel:[phone] Offic/outpt E&m Estab Mod-hi 2 [facility], [address] [address], [place], [id number], [place] tel:[phone] [facility] Abdominal pain (chief complaint) LUQ PainIrritable Bowel Syndrome 0 No Information Referring Provider: Deja Xie, [address] [place], [address]. tel:[phone] [facility], [address] [address], [place], [id number], [place] tel:[phone] [facility] Colon Cancer ScreeningBenign Neoplasm Lg Bowel 8 No Information Referring Provider: Deja Xie, [address] [place] [place], [address]. tel:[phone] Family History Family Member Type Diagnosis Age [...] polyps Payers Payer name Insurance type Covered democrat ID Authorblakea tion(s) Medicare NGS MB [id number] Social History Type Description Quantity Date Captured [...]
--- OUTSIDE RECORDS SUMMARY | 2015-12-08 05:00 | XMS_ITS | Continuity of Care Document ---
Author Organization [facility] Address [address] [address] [place] [address] Phone Care Team Providers Care Web Offset Press Feeder Name Role Phone Didi Barnes MD Unavailable [...] Diagnoses Date Provider Providers Copied on Encounter [facility] Dig[facility] [place], [address] [address], [facility], [place], [id number], [place] tel:[phone] [facility] Endoscopy [place] Diverticulosis large intestine w/o perforation or abscess w/o bleedingEncounte r for screening for malignant neoplasm of colonPersonal history of colonic polypsDvrtclos of lg int w/o perforation or abscess w/o bleeding 6 Cameron Tolbert. [address], [id number], [place]. tel:[phone] Referring Provider: Deja Xie, [address], [place], [address]. tel:[phone] [facility] [place], [address] [address], [facility], [place], [address], [place] tel:[phone] [facility] No Information 6 Bryson Benoit. [address] [facility] 500, [place], [place], [address], [place]. tel:[phone] Referring Provider: Deja Xie, [address] [place], [address]. tel:[phone] [facility] [place], [address] [address], [place], [address], [place] tel:[phone] [facility] 3 yr follow up screenig (chief complaint) Hx of polyps (chief complaint) Family history of colon cancer, Maternal uncle, cousin (chief complaint) Personal History Colon PolypsColon Cancer ScreeningPersona l History Colon Polyps 1 No Information Referring Provider: Deja Xie, [address], [place], [address]. tel:[phone] Offic/outpt E&m Estab Mod-hi 2 [facility], [address] [address], [place], [address], [place] tel:[phone] [facility] Abdominal pain (chief complaint) LUQ PainIrritable Bowel Syndrome 0 No Information Referring Provider: Deja Xie, [address] [place], [address]. tel:[phone] [facility] Dig[facility]ive [facility] [place], [address] [address], [place], [address], [place] tel:[phone] [facility] Colon Cancer ScreeningBenign Neoplasm Lg Bowel 8 No Information Referring Provider: Deja Xie, [address] [place], [address]. tel:[phone] Family History Family Member Type Diagnosis Age [...] democrat ID Authorblakea tion(s) Medicare NGS MB [id number] Social History Type Description Quantity Date Captured [...]
--- OUTSIDE RECORDS SUMMARY | 2015-12-08 05:00 | XMS_ITS | Continuity of Care Document ---
Author Organization [facility] Address [address] [address] [place] [address] Phone Care Team Providers Care Integrity Director Name Role Phone Didi Barnes MD Unavailable [...] Diagnoses Date Provider Providers Copied on Encounter [facility] [place], [address] [address], [facility], [place], [address], [place] tel:[phone] [facility] Endoscopy [place] Diverticulosis large intestine w/o perforation or abscess w/o bleedingEncounte r for screening for malignant neoplasm of colonPersonal history of colonic polypsDvrtclos of lg int w/o perforation or abscess w/o bleeding 6 Cameron Tolbert. [address], [id number], [place]. tel:[phone] Referring Provider: Deja Xie, [address], [place], [address]. tel:[phone] [facility] [place], [address] [address], [facility], [place], [address], [place] tel:[phone] [facility] No Information 6 Bryson Benoit. [address] [facility] 500, [place], [place], [address], [place]. tel:[phone] Referring Provider: Deja Xie, [address] [place], [address]. tel:[phone] [facility] [place], [address] [address], [place], [address], [place] tel:[phone] [facility] 3 yr follow up screenig (chief complaint) Hx of polyps (chief complaint) Family history of colon cancer, Maternal uncle, cousin (chief complaint) Personal History Colon PolypsColon Cancer ScreeningPersona l History Colon Polyps 1 No Information Referring Provider: Deja Xie, [address], [place], [address]. tel:[phone] Offic/outpt E&m Estab Mod-hi 2 [facility], [address] [address], [place], [address], [place] tel:[phone] [facility] Abdominal pain (chief complaint) LUQ PainIrritable Bowel Syndrome 0 No Information Referring Provider: Deja Xie, [address] [place], [address]. tel:[phone] [facility], [address] [address], [place], [address], [place] tel:[phone] [facility] Colon Cancer ScreeningBenign Neoplasm Lg Bowel 8 No Information Referring Provider: Deja Xie, [address] [place], [address]. tel:[phone] Family History Family Member Type Diagnosis Age [...] polyps Payers Payer name Insurance type Covered green party ID Authorblakea tion(s) Medicare NGS MB [id number] Social History Type Description Quantity Date Captured [...]
[2025-04-05 13:12] VITALS: BP 188/76; PULSE 76; RESP 18; TEMP 36.1; O2SAT 98; BMI 24.3
--- NOTE | 2025-04-05 13:49 | CRLHL7_ITS ---
For Patients: As a result of the Cures Act, medical imaging exams and procedure reports are released immediately into your electronic medical record. You may view this report before your referring provider. If you have questions, please contact your health care provider. INDICATION: Knee Pain. Had cortisone injection 04/04/25. Had fall after, injury TECHNIQUE: Knee radiograph 3 views right COMPARISON: 04/04/2025 FINDINGS: Bone: No acute fractures or aggressive bone lesions are identified. 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 No significant knee effusion is seen. Soft tissue: Unremarkable. No radiopaque foreign bodies are seen. IMPRESSION: 1. No acute osseous injuries are noted. Dictated by: Simba Ruth MD @ 04/05/2025 14:11:22 (Electronically Signed)
--- NOTE | 2025-04-05 13:49 | ED.GENADULT ---
HPI - General Adult General Stated complaint: fall, R leg injury Time Seen by Provider: 04/05/25 13:14 History of Present Illness HPI narrative: This 84-year-old female comes in with right knee pain. She has been having pain in this knee for several weeks or months and did go to a clinic appointment yesterday. She had been in the emergency department earlier this week an ultrasound showed a small Murphy cyst. The clinic appointment yesterday in the orthopedic clinic also included an x-ray which was negative for fracture but showed some likelihood of moderate degenerative disease. The patient did receive an intra articular injection of a steroid and lidocaine and she states that she felt distinctly better after this. She was ambulating with a cane and wanted to get troy. She must of tripped on a rug she states and fell onto this right knee. She slept okay last night but this morning has had difficulty bearing weight. She states that she twisted a bit while in the bathroom and had distinct pain shooting down her right leg. Related Data Home Medications ?Medication ?Instructions ?Recorded ?Confirmed Nutraview PO 03/22/22 04/04/25 acetaminophen 500 mg tablet 500 mg PO Q6H PRN 03/22/22 04/04/25 omega-3 fatty acids 500 mg capsule 500 mg PO QDAY 03/22/22 04/04/25 tumeric black pepper 500 mg PO DAILY 08/25/22 04/04/25 ibuprofen 200 mg tablet (Advil) 200 mg PO Q6H PRN 08/24/23 04/04/25 multivitamin 1 tab PO QDAY PRN 08/24/23 04/04/25 Provex PO DAILY 08/29/24 04/04/25 melatonin 5 mg capsule 3 - 5 mg PO .hs 08/29/24 04/04/25 vitamin B complex 1 cap PO QDAY 08/29/24 04/04/25 magnesium glycinate 100 mg (as 375 mg PO QDAY PRN 10/07/24 04/04/25 glycinate) tablet sennosides 8.6 mg tablet (senna) 8.6 mg PO QDAY 10/07/24 04/04/25 Previous Rx's ?Medication ?Instructions ?Recorded lisinopril 20 0.5 tab PO QHS #45 tabs 08/29/24 mg-hydrochlorothiazide 12.5 mg tablet Allergies Allergy/AdvReac Type Severity Reaction Status Date / Time amoxicillin Allergy Unknown Rash Verified 04/05/25 13:17 Review of Systems Status of ROS: Reports: 10 or more systems reviewed and unremarkable except as noted in History and below Narrative: Constitutional: No fevers, no weight gain or loss. Eyes: No discharge. No vision changes. HENT: No congestion, no sore throat, no ear pain. Cardiovascular: No chest pain, no palpitations. Respiratory: No shortness of breath, no wheezes, no cough. Gastrointestinal: No abdominal pain, no vomiting, no diarrhea. Genitourinary: No dysuria, no hematuria. Musculoskeletal: Right leg pain and injury as described above. Skin: No rashes, no pruritis. Neurological: No dizziness, weakness, sensory change, speech change. Endo/Heme/Allergies: No bruising or bleeding. No polydipsia. Pysch: no suicidality, no anxiety, no insomnia. All other systems reviewed and are negative. [facility] Medical History History of deep venous thrombosis (2011) ?Z86.718 - Personal history of other venous thrombosis and embolism (ICD-10) Surgical History History of tonsillectomy (1945) ?Z90.89 - Acquired absence of other organs (ICD-10) History of bilateral cataract extraction (2017) ?Z98.41 - Cataract extraction status, right eye (ICD-10) ?Z98.42 - Cataract extraction status, left eye (ICD-10) Social History What is your current living situation?: I presently have a place to live Problems where you live: no known problems In the past 12 months, utilities in danger of being shut off: no In past 12 months, lack of transportation kept you from medical appts, meetings, work, or getting things needed for daily living: no In the past 12 mos, have been you worried that your food would run out before you had money to buy more?: never true In the past 12 mos, the food you bought just didn't last and you didn't have money to buy more?: never true Smoking Status: Never smoker How often does anyone, including family, friends and others, physically hurt you: never How often does anyone, including family, friends and others, insult or talk down to you: never How often does anyone, including family, friends and others, threaten you with harm: never How often does anyone, including family, friends and others, scream or curse at you: never Exam Narrative: Exam Narrative: Constitutional: Well-developed, well-nourished, no acute distress. HEENT: Normocephalic, atraumatic. Neck: Normal range of motion. Nontender. Supple. Heart: Intact distal pulses. Lungs: No chest discomfort. No wheezes, rhonchi, or rales. Abdomen: Nontender. Back: Normal range of motion. Extremities: Mild swelling of the right knee with no point tenderness when palpating in this area. There is an abrasion overlying the right knee from the fall yesterday. She is unable to raise her right leg from the bed. Skin: Intact. No rash. Warm. No erythema or pallor. Neurologic: No altered sensation. No weakness. Alert and oriented. Psychiatric: No suicidality. No anxiety or depression. No insomnia. Nursing notes and vitals signs are reviewed. Const: Vital Signs, click to edit/add: Vital Signs - 24 hr 04/05/25 13:12 Temperature 97 F L Pulse Rate [Right] 76 Respiratory Rate 18 Blood Pressure [Ri ght Upper Arm] 188/76 H Pulse Oximetry 98 Oxygen Delivery Me thod Room Air Course Vital Signs Vital signs: Initial Vital Signs Temperature 97 F L 04/05/25 13:12 Temperature Source Temporal Artery Scan 04/05/25 13:12 Pulse Rate 76 04/05/25 13:12 Pulse Rhythm Regular 04/05/25 13:12 Pulse Strength 3+ Normal 04/05/25 13:12 Respiratory Rate 18 04/05/25 13:12 Blood Pressure 188/76 H 04/05/25 13:12 Blood Pressure Mean 113 H 04/05/25 13:12 Blood Pressure Position Sitting 04/05/25 13:12 Pulse Oximetry 98 04/05/25 13:12 Oxygen Delivery Method Room Air 04/05/25 13:12 Vital Signs Temperature 97 F L 04/05/25 13:12 Pulse Rate 76 04/05/25 13:12 Respiratory Rate 18 04/05/25 13:12 Blood Pressure 188/76 H 04/05/25 13:12 Pulse Oximetry 98 04/05/25 13:12 Oxygen Delivery Method Room Air 04/05/25 13:12 Temperature 97 F L 04/05/25 13:12 Pulse Rate 76 04/05/25 13:12 Respiratory Rate 18 04/05/25 13:12 Blood Pressure 188/76 H 04/05/25 13:12 Pulse Oximetry 98 04/05/25 13:12 Oxygen Delivery Method Room Air 04/05/25 13:12 Medications Administered Medications: Discontinued Medications Generic Name Dose Route Start Last Admin Trade Name Uzair PRN Reason Stop Dose Admin Ketorolac Tromethamine 10 mg 04/05/25 14:52 04/05/25 15:22 Ketorolac 10 Mg Tablet PO 04/05/25 14:53 10 mg ONCE ONE Administration Medical Decision Making MDM Narrative Medical decision making narrative: This patient comes in reporting pain in her right knee and lower leg as described above. She did have an x-ray done yesterday and had ultrasound done a few days prior to that. She does have a small Murphy cyst and yesterday received an intra-articular injection of a steroid and lidocaine. She did fall yesterday with an abrasion on her knee but was able to get up and ambulate after the fall. Today she reports increased pain in her right lower leg to where she does not want to lift her leg and has no desire to ambulate. An x-ray of her right knee shows no acute findings. The patient then stated that she thought she should have an x-ray of her lower right leg since it was having pain there also. I explained the reasoning for just doing a knee x-ray but nevertheless did order a tibia fibula x-ray of the right leg which also returns negative. It could be that the patient's pain has worsened after feeling better with the injection initially and increasing activity then when the lidocaine wears off and before the steroid kicks in her pain can worsen. I did speak with the orthopedic physician's retail loan originator assistant tour production supervisor. He recommended a knee immobilizer and pain meds and will be happy to re-evaluate in the orthopedic clinic in a couple days. The patient did receive an oral dose of Toradol here and still complains of pain when pushing off on her right leg. She does tell me that she did an excessive amount of walking which she is not accustomed to. This was a few days ago and this may now be causing some muscle strain that she is experiencing currently. She is okay to return home. Her son is with her and will assist her. She does live in a assisted living setting and has access to help if needed. I did provide prescriptions from [facility] for Toradol and [place]. Discharge Plan Discharge Clinical Impression: Knee pain Patient Disposition: Home w/ Parent or Adult Condition: Stable Additional Instructions: Wear knee immobilizer and use pain medicine as needed and directed. Use walker for assistance in ambulating. Follow-up with orthopedic clinic for ongoing management. Call [phone] for appointment. Return if worsening. Prescriptions: No Action ibuprofen [Advil] 200 mg tablet 200 mg PO Q6H PRN vitamin B complex Capsule 1 cap PO QDAY melatonin 5 mg capsule 3 - 5 mg PO .hs lisinopril-hydrochlorothiazide 20-12.5 mg tablet 0.5 tab PO QHS Qty: 45 3RF magnesium glycinate 100 mg tablet 375 mg PO QDAY PRN acetaminophen 500 mg tablet 500 mg PO Q6H PRN Rx Instructions: NO MORE THAN 4000 MG/DAY omega-3 fatty acids 500 mg capsule 500 mg PO QDAY Nutraview PO multivitamin Tablet 1 tab PO QDAY PRN Provex PO DAILY tumeric black pepper 500 mg PO DAILY sennosides [senna] 8.6 mg tablet 8.6 mg PO QDAY Follow Up/Referrals: Wendy Celaya MD [Primary Care Provider, Internal Medicine] Stand Alone Forms: [employer] Info Instructions
--- OUTSIDE RECORDS SUMMARY | 2025-04-05 13:57 | XMS_ITS | Patient Health Record ---
Author Organization [facility] Address [address] [place] [address] Care Team Providers Care Drive In Theater Attendant Name Role Phone TimmyWendy irving Primary Care Provider UnavailWILFRIDO Saab Unavailable [phone] Juan Quintana Unavailable Unavailable Allergies Allergen (clinical drug ingredient) Drug/Non Drug Allergy documented on EMR Reaction Allergy Type Onset Date Status amoxicillin amoxicillin Skin Allergy; Drug Allergy Active Reason For Referral No Information Medications Medication SIG (Take, Route, Frequency, Duration) Notes Start Date End Date Status hydroCHLOROthiazide ; Duration: 90 SpecialInstr uction: TK 1 T PO ONCE D 05/31/2015 Active Lisinopril-hydroCHLOROthiaz leonor 20-12.5 MG Tablet Oral; Duration: 90 Active Social History Tobacco Use: Social History Observation Description Date Details (start date - stop date) Never Smoker NA - NA Social History Alcohol Use: Social Info Question Answer Notes Alcohol Screen Did you have a drink containing alcohol in the past year? 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) 02/26/20 16 0 confirmed [id number] Plan Of Treatment No Information Insurance Providers Payer Name Payer Address Payer Phone Subscriber Number Group Number Insured Name Patient Relationship to Insured Coverage Start Date Coverage End Date MEDICARE [address] [place] [address] [id number] John Rosalia Self - patient is the insured 4 [facility] SECOND TO MEDICARE [address] [place], [place] [id number] John Rosalia Self - patient is the insured Medical (General) History Medical History History ICD Code HTN cataracts 10/09 covid vac Surgical History 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
--- OUTSIDE RECORDS SUMMARY | 2025-04-05 13:57 | XMS_ITS | Clinical Summary ---
Author Organization [facility] Address [address] [place] [address] Care Team Providers Care Cell Tuber Machine Name Role Phone Halina Chappell MD Unavailable [phone] [facility] Phys Of Primary Care Provider Un available [...] 03/15/18 JACKLYN Marquez Advance Care Planning Educator [phone] Hypertension 05/08/2012 Hyperlipidemia 01/10/2012 Personal history of [...] Dx in 70's Heart Disease Paternal Uncle MD age 50's Stroke Paternal Uncle Hypertension Sister [...] on file Legal Sex Female 6:31 AM DIRECTOR OF PROFESSIONAL SERVICES Gender Identity Not on file Sexual Orientation Not on file Occupation Industry Job Start Date Job End Date [employer] business Not on file Not on [...] 2 SITES AXIAL Routine 04/10/2013 1:53 PM DIRECTOR OF PROFESSIONAL SERVICES Female climacteric state from Last 3 Months or Most Recently Relevant to Health Maintenance Results * XR DEXA BONE DENSITY 2 SITES [07065.1] (04/10/2013 1:53 PM DIRECTOR OF PROFESSIONAL SERVICES) Anatomical Region Laterality Modality Spine, HIPS, HIPL, HIPR Bone Den sitometry Impressions 04/11/2013 1:20 PM DIRECTOR OF PROFESSIONAL SERVICES This patient's T-score meets the World Health [...] Ltd[employer] [email or web address] MARCE/marvin Narrative 04/11/2013 1:20 PM DIRECTOR OF PROFESSIONAL SERVICES DIAGNOSTIC DXA BONE MINERAL DENSITY, 04/10/2013 CLINICAL [...] TECHNIQUE: The patient was scanned on a [employer]. The study was technically adequate. The following [...] TECHNIQUE: The patient was scanned on a [employer]. The study wastechnically adequate. The following sites [...] in [facility]. Freda Castillo M.D. Breast Radiologist [employer] [email or web address] MARCE/marvin us Marlen Lindo MD DEXA Final Resul t from Last 3 Months or Most Recently Relevant to Health Maintenance Insurance MEDICARE PART B HB ONLY MEDICARE PART A HB ONLY [facility] MEDICARE PB ONLY Advance Directives Documents on File Type Date Recorded Patient Tobacco Buyer Expl anation Healthcare Directive 03/22/2018 10:02 AM 1 Care Teams Cell Tuber Machine Relationship Specialty Start Date End Date James Hobson Phys Of PCP - General 09/28/20 Halina Chappell MD Dermatology 06/01/15
--- OUTSIDE RECORDS SUMMARY | 2025-04-05 13:58 | XMS_ITS | Clinical Summary ---
Author Organization [facility] Address [address] [place] [address]. [place] [address] Care Team Providers Care Front Office Representative Name Role Phone Deja Leung MD Primary Care Provider [phone] Allergies Active Allergy Reactions Criticality Noted Date [...] Take 1 tablet by mouth daily Active [place] Jack-3 Fatty Acids (FISH OIL PO) PLUS VITAMIN [...] on file Legal Sex Female 4:22 AM [employer] Gender Identity Not on file Sexual Orientation [...] on file Medical Devices Implanted Type Area Notch Grinder Device Identifier Shelf Expiration Date Model / Serial / Lot Eye Imp Iol Riccardo Pcl Sn60wf Acrysof Iq 19.0 Implanted:Qty: 1 on 01/18/2018 by Nadeem Arcos MD at [facility] Lens/Eye Implant Left: Eye [employer] 06/21/2022 [id number].190 / [id number] / Eye Imp Iol Riccardo Pcl Sa60wf Acrysof Iq 18.0 Implanted:Qty: 1 on 12/28/2017 by Nadeem Arcos MD at [facility] Right: Eye 09/18/2022 SA60WF 18.0 / [id number] / [place] [id number] [facility] [place] [phone] Care Teams Front Office Representative Relationship Specialty Start Date End Date Deja Leung MD PCP - General Internal Medicine 12/18/17
--- NOTE | 2025-04-05 14:52 | CRLHL7_ITS ---
For Patients: As a result of the Cures Act, medical imaging exams and procedure reports are released immediately into your electronic medical record. You may view this report before your referring provider. If you have questions, please contact your health care provider. INDICATION: Fall pain TECHNIQUE: Three views right tibia and fibula FINDINGS/IMPRESSION: Normal alignment. No acute fracture or acute osseous abnormalities are visualized. Dictated by Belen Snow MD @ 04/05/2025 4:04:53 PM (Electronically Signed)
[2025-04-05] MEDS: KETOROLAC 10 MG TABLET PO (15:22)
== END 2025-04-05 17:10 | disposition home or self-care (01) ==
PROVIDERS: Emergency Provider Emergency Medicine Emergency Medical Services; PCP Internal Medicine
DX: M25.561 Pain in right knee (principal); W01.0XXA Fall on same level from slipping, tripping and stumbling without subsequent striking against object, initial encounter
CPT/HCPCS: 73562; 73590; 99283; 99284; A9270

== ENCOUNTER 2025-04-29 13:24 | Outpatient (CLI) | payer MEDICARE, BC, SELFPAY ==
--- NOTE | 2025-04-29 13:45 | CRLHL7_ITS ---
For Patients: As a result of the Century Cures Act, medical imaging exams and procedure reports are released immediately into your electronic medical record. You may view this report before your referring provider. If you have questions, please contact your health care provider. EXAM: MRI OF THE RIGHT KNEE, WITHOUT CONTRAST CLINICAL INDICATION: Knee pain. PRIOR SURGERY: None reported. COMPARISON PLAIN FILMS: 05 April 2025 COMPARISON CROSS-SECTIONAL IMAGING STUDIES: None available at time of interpretation. TECHNICAL: Axial, sagittal and coronal T1, PD, PD FS and T2 FS images. FINDINGS: OSSEOUS STRUCTURES: No fracture, marrow edema or marrow replacement process. JOINT SPACE AND CAPSULE: Effusion: Moderately large effusion extending above the field of view suprapatellar recess. Joint Bodies: None seen. CRUCIATE LIGAMENTS: Anterior Cruciate Ligament: Normal. Posterior Cruciate Ligament: Normal. EXTENSOR MECHANISM: Distal Quadriceps Tendon: Normal. Patellar Tendon: Normal. Medial Patellar Retinaculum and Medial Patellofemoral Ligament: Normal. Lateral Patellar Retinaculum: Normal. Normal patellar alignment. No patella ela. Normal trochlear depth. Normal lateral trochlear inclination. MEDIAL COLLATERAL LIGAMENT AND POSTEROMEDIAL CORNER COMPLEX: Medial Collateral Ligament: Normal. Medial Head of the Gastrocnemius and Semimembranosus Tendons: Normal. LATERAL COLLATERAL LIGAMENT COMPLEX AND POSTEROLATERAL CORNER COMPLEX: Fibular Collateral Ligament: Normal. Distal Biceps Femoris Tendon Complex: Normal. Iliotibial Band: Normal. Popliteus Tendon: Normal. Posterolateral Corner Capsule: Normal. MEDIAL COMPARTMENT: Medial Meniscus: Mucoid degeneration expands the posterior body and posterior horn. Shallow superior articular surface tear mid posterior horn. Longitudinal full-thickness tear at the root. Articular Cartilage: Diffuse high-grade 2 to grade 3 thinning. Short curvilinear subchondral sclerotic line in the anterior weight-bearing plateau with surrounding band of moderate marrow edema. LATERAL COMPARTMENT: Lateral Meniscus: Shallow fraying causes indistinct appearance of the free margin in the body. Articular Cartilage: Uniform grade 2 thinning. PATELLOFEMORAL COMPARTMENT: Articular Cartilage: Irregular up to grade 4 cartilage thinning and fissuring upper median ridge with underlying sclerosis and cysts. Grade 2 degraded 3 undulating thinning through the medial facet. PERIARTICULAR SOFT TISSUES: Popliteal Cyst: Small to moderate-sized cyst. Greatest diameter about 4 cm. Periarticular Cysts or Ganglia: None. Bursae: No prepatellar, superficial infrapatellar, deep infrapatellar, pes anserinus or semimembranosus/MCL bursitis. Musculature: No muscle atrophy or muscle edema. Subcutaneous and Soft Tissues: Subcutaneous edema diffusely. This is most pronounced medial and posterior from the vastus medialis extending above the field of view. Query proximal injury. Neurovascular Structures: Normal. IMPRESSION: 1. Longitudinal full-thickness tear medial meniscal root. Mucoid degeneration and extrusion posterior horn and body. Shallow radial tear superior articular surface tear mid posterior horn. 2. Subchondral bone plate fracture medial tibial plateau. 3. 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 4. Moderately large reactive bland joint effusion. 5. Focally prominent subcutaneous deep soft tissue edema abutting the vastus medialis extending above the field of view. Query proximal injury. Dictated by Nadeem Jc MD @ 04/30/2025 10:52:38 AM (Electronically Signed)
== END 2025-04-29 13:25 | disposition home or self-care (01) ==
LOC: MRI 13:25
PROVIDERS: PCP Internal Medicine; Visit Provider Internal Medicine
DX: M23.221 Derangement of posterior horn of medial meniscus due to old tear or injury, right knee (principal); M84.361A Stress fracture, right tibia, initial encounter for fracture; M17.11 Unilateral primary osteoarthritis, right knee; M25.461 Effusion, right knee; M71.21 Synovial cyst of popliteal space [Baker], right knee; R60.0 Localized edema; M25.561 Pain in right knee
CPT/HCPCS: 73721